=== PATIENT | female | born 1955 | race Caucasian/White ===

== ENCOUNTER 2024-06-01 08:02 | Day surgery (SDC) | payer MEDICARE, SELFPAY ==
[2024-04-22 13:11] VITALS: BMI 18.6
--- NOTE | 2024-05-31 14:05 | P.PNAN_ITS ---
Anes - Initial Pre Proc Eval Procedure: Operation Date: 06/01/24 10:00 Proposed Procedures p Screening Colonoscopy - Sergio Alvarado MD Date/Time: 05/31/24 14:05 Surgeon: Sergio Alvarado MD Pre Op Diagnosis: Neoplasm Screening Patient Data Age: 69 Gender: F Height: 1.68 m Weight: 52.163 kg Allergies Allergy/AdvReac Type Severity Reaction Status Date / Time No Known Allergies Allergy Verified 05/13/24 14:14 Home Medications Medication Instructions Recorded Confirmed Type atenolol 50 mg tablet 50 mg PO DAILY #90 tabs 04/21/24 05/13/24 Rx atorvastatin 10 mg tablet 10 mg PO .every other day #45 tabs 04/21/24 05/13/24 Rx duloxetine 30 mg capsule,delayed 30 mg PO DAILY #90 caps 04/21/24 05/13/24 Rx release sodium,potassium,mag sulfates 17.5 See Rx Instructions PO .COMPLEX 04/22/24 05/13/24 Rx gram-3.13 gram-1.6 gram oral soln #354 mL (Suprep Bowel Prep Kit) Patient hx anesthesia problems: none Family hx anesthesia problems: none Results Review: All pre-operative results and documents have been reviewed as part of the pre- operative evaluation. [facility] Past Medical History Medical History (Updated 06/01/24 @ 09:31 by Sergio Alvarado MD) Essential (primary) hypertension Generalized anxiety disorder Pure hypercholesterolemia Surgical History Surgical History (Updated 04/20/24 @ 13:38 by Jens Ham MD) History of hysterectomy 04/2005 Social History Social History (Updated 04/20/24 @ 13:40 by Jens Ham MD) Smoking status: Never smoker Substance use type: does not use Living arrangements: with family Occupation/Education: retired Anes - Eval Final PreProcedure Day of Procedure 05/31/24 14:05 Patient weight: normal Heart: regular rate and rhythm Lungs: clear to auscultation and normal air movement Airway: Mallampati scale class II Neurological: alert and oriented Last oral intake: >/= 8 hours ASA classification: II Emergent: no Anesthetic plan: proceed Anesthesia type and monitoring: general GIVS and standard monitoring Results Review: All pre-operative results and documents have been reviewed as part of the pre- operative evaluation. Informed Consent: The patient's anesthetic plan and its attendant risks and benefits were discussed with the patient/family/POA. Questions were solicited and answers provided to the satisfaction of the patient/family/POA.
[2024-06-01 09:10] VITALS: BP 142/73; PULSE 76; RESP 16; TEMP 37.4; O2SAT 100
[2024-06-01] MEDS: LACTATED RINGERS 1,000 ML 150 ML IV CONT (09:22)
--- NOTE | 2024-06-01 09:30 | PM.HPGS ---
History of Present Illness History of Present Illness Consent: Risks, benefits, and alternatives have been discussed and questions answered. Patient agrees to proceed with procedure. Chief complaint: Neoplasm Screening Narrative: Yoselyn Gutierrez is a 69 year old female presents for screening colonoscopy. Patient's current weight appetite and bowel movements are normal. Patient denies abdominal pain. She has had no bleeding. Family history is significant that her mother had colon polyps. Review of Systems Review of Systems: All systems reviewed & are unremarkable except as noted in HPI and below PMFSH Past Medical History Medical History (Updated 06/01/24 @ 09:31 by Sergio Alvarado MD) Essential (primary) hypertension Generalized anxiety disorder Pure hypercholesterolemia Surgical History Surgical History (Updated 04/20/24 @ 13:38 by Jens Ham MD) History of hysterectomy 04/2005 Social History Social History (Updated 04/20/24 @ 13:40 by Jens Ham MD) Smoking status: Never smoker Substance use type: does not use Living arrangements: with family Occupation/Education: retired [employer] Home Medications and Allergies Home Medications Medication Instructions Recorded Confirmed Type atenolol 50 mg tablet 50 mg PO DAILY #90 tabs 04/21/24 05/13/24 Rx atorvastatin 10 mg tablet 10 mg PO .every other day #45 tabs 04/21/24 05/13/24 Rx duloxetine 30 mg capsule,delayed 30 mg PO DAILY #90 caps 04/21/24 05/13/24 Rx release sodium,potassium,mag sulfates 17.5 See Rx Instructions PO .COMPLEX 04/22/24 05/13/24 Rx gram-3.13 gram-1.6 gram oral soln #354 mL (Suprep Bowel Prep Kit) Allergies Allergy/AdvReac Type Severity Reaction Status Date / Time No Known Allergies Allergy Verified 05/13/24 14:14 Vital Signs Vital Signs - 24 hr 06/01/24 09:10 Temperature 99.4 F Pulse Rate 76 Respiratory Rate 16 Blood Pressure 142/73 H Pulse Oximetry 100 Oxygen Delivery Room Air Exam Narrative: Physical exam reveals patient to be alert. Vital signs stable. HEENT exam is unremarkable. Patient is anicteric. Lungs are clear to auscultation and to percussion. Heart is without murmur or extra sounds. Abdomen bowel sounds are present soft nontender. Digital and External rectal exam is normal. Assessment and Plan Assessment and plan (1) Screen for colon cancer: Code(s): Z12.11 - Encounter for screening for malignant neoplasm of colon Status: Acute Assessment and Plan: Patient presents today for neoplasia screening colonoscopy. Further recommendations may be given after endoscopy.
[2024-06-01 10:58] VITALS: BP 110/61; PULSE 59; RESP 18; O2SAT 100
[2024-06-01 11:08] VITALS: BP 107/58; PULSE 64; RESP 16; O2SAT 100
[2024-06-01 11:18] VITALS: BP 115/64; PULSE 58; RESP 15; O2SAT 100
--- NOTE | 2024-06-01 12:26 | WPDANESPN ---
Anes - Prog Note Post-Op Date/Time: 06/01/24 12:26 Cardiovascular status: normal Respiratory status: normal Airway patency: baseline Mental status: baseline Post-Op hydration status: normal Vital Signs: Last Vital Signs Temp 37.4 C 06/01/24 09:10 Pulse 58 L 06/01/24 11:18 Resp 15 06/01/24 11:18 BP 115/64 06/01/24 11:18 Pulse Ox 100 06/01/24 11:18 O2 Del Method Room Air 06/01/24 11:18 Pain Score (VAS): 0 I/O: Intake & Output 05/31/24 06/01/24 06/01/24 23:59 07:59 15:59 Intake Total 700 Balance 700 Post-procedural complaints: none Patient Feedback: Patient satisfied with anesthetic care. Other Findings: Patient vital signs back to baseline. Patient denies nausea and vomiting. Patient's pain under control. Patient OK for discharge.
== END 2024-06-01 11:41 | disposition home or self-care (01) ==
PROVIDERS: PCP Family Medicine; Visit Provider Internal Medicine Gastroenterology
PROC: 0DJD8ZZ Inspection of Lower Intestinal Tract, Via Natural or Artificial Opening Endoscopic (ICD-10-PCS; CPT 45378; principal; 2024-06-01 10:00)
DX: Z12.11 Encounter for screening for malignant neoplasm of colon (principal); K57.30 Diverticulosis of large intestine without perforation or abscess without bleeding; K64.8 Other hemorrhoids
CPT/HCPCS: 45378